=== PATIENT | male | born 1975 | race Caucasian/White ===

== ENCOUNTER 2021-07-08 14:04 | Outpatient (CLI) | payer OTHER, SELFPAY ==
--- NOTE | 2021-07-08 14:20 | CT_ITS ---
STUDY: CT BRAIN WITHOUT CONTRAST REASON FOR EXAM: Male, 46 years old. ABN FINDING IN SKULL/HEAD XRAY RADIATION DOSAGE (If Supplied By Facility): CTDIvol = ( 47.06 ) mGy, DLP = ( 943.26 ) mGycm TECHNIQUE: Transaxial CT imaging of the brain was performed without administration of intravenous contrast material. Individualized dose optimization techniques were used for this CT. COMPARISON: No relevant priors. FINDINGS: Normal soft tissue structures. Normal calvarium. Normal size ventricles and extra-axial spaces for the patient''s age. I suspect a focal area of probable petechial hemorrhage along the anterior superior aspect of the right frontal lobe medially with the evidence of a 1.6 cm x 2.1 cm hypodensity in the medial aspect of the right frontal lobe. This may represent an area of contusion. Follow-up is recommended. Normal basal ganglia and thalami. Normal brainstem. Normal cerebellum. There is no intracranial hemorrhage. There are no findings of an acute ischemic infarction. Normal visualized paranasal sinuses. CT/Brain/Head without Contrast IMPRESSION: Findings suggest a focal hemorrhagic contusion in the anterior aspect of the medial aspect of the right frontal lobe. Electronically Signed: Han Beach MD at 14:55 EST ,
== END 2021-07-08 23:59 | disposition home or self-care (01) ==
PROVIDERS: PCP Nurse Practitioner Family; Referring Provider Nurse Practitioner Family; Visit Provider Nurse Practitioner Family
DX: R93.0 Abnormal findings on diagnostic imaging of skull and head, not elsewhere classified (principal)
CPT/HCPCS: 70450